=== PATIENT | male | born 1955 | race Caucasian/White ===

== ENCOUNTER → 2020-07-28 | Outpatient (CLI) | payer MEDICARE, OTHER | LOC: EDBD 10:33 → LAB 10:33 | DX: L08.9 Local infection of the skin and subcutaneous tissue, unspecified (principal); L03.314 Cellulitis of groin ==

== ENCOUNTER 2023-12-29 08:57 | Observation (INO) | payer MEDICARE, OTHER ==
[~2023-12-29] VITALS: Ht 185.4 cm; Wt 120.0 kg
[2023-12-29 09:40] LABS: BASO # 0.02 K/mm3 (0.02-0.10); EOS # 0.17 K/mm3 (0.04-0.40); EOS % 2.4 % (0.0-4.0); HEMATOCRIT 50.3 % (42.0-52.0); HEMOGLOBIN 16.6 g/dL (13.5-18.0); LYMPH# 1.49 K/mm3 (1.50-4.00); MEAN CELL VOLUME 90 fl (78-100); MEAN CORPUSCULAR HEMOGLOBIN 30 pg (27-31); MEAN CORPUSCULAR HGB CONC 33 g/dL (33-37); MEAN PLATELET VOLUME 10.6 fl (7.4-10.4); NEU # 4.88 K/mm3 (1.40-6.50); PLATELET COUNT 260 K/mm3 (130-400); RED BLOOD COUNT 5.61 M/mm3 (4.20-5.60); RED CELL DISTRIBUTION WIDTH 12.9 % (11.5-14.5); WHITE BLOOD COUNT 7.2 K/mm3 (4.8-10.8)
[2023-12-29 09:51] LABS: ALBUMIN 3.9 g/dL (3.4-4.8)
[2023-12-29 09:54] LABS: TOTAL PROTEIN 7.4 g/dL (6.2-8.1)
[2023-12-29 10:26] LABS: TOTAL BILIRUBIN 0.8 mg/dL (0.2-1.2)
[2023-12-29] MEDS ORDERED: cloNIDine 0.1 MG TAB PO ONE (10:30)
[2023-12-29] MEDS ORDERED: Albuterol/Ipratropium 3 MG-0.5 MG/3 ML Neb Soln IH ONE (10:30)
[2023-12-29 12:00] VITALS: BP 189/104
[2023-12-29] MEDS ORDERED: Acetaminophen 500 MG TAB PO PRN (13:00)
[2023-12-29] MEDS ORDERED: Ibuprofen 200 MG TAB PO PRN (13:00)
[2023-12-29] MEDS ORDERED: Bisacodyl 5 MG TAB PO PRN (13:00)
[2023-12-29] MEDS ORDERED: Ondansetron 4 MG/2 ML VIAL IV PRN (13:00)
[2023-12-29] MEDS ORDERED: Polyethylene Glycol 3350 Powder 17 GM PACKET PO PRN (13:00)
[2023-12-29] MEDS ORDERED: Famotidine 20 MG TAB PO SCH (13:03)
[2023-12-29] MEDS ORDERED: methylPREDNISolone Sod Succ 40 MG/ML VIAL IV SCH (13:06)
[2023-12-29] MEDS ORDERED: Albuterol 0.083% Nebule (2.5 MG/3 ML) IH PRN (13:15)
[2023-12-29] MEDS ORDERED: Losartan 50 MG,hydroCHLOROthiazide 12.5 MG PO SCH (13:29)
[2023-12-29] MEDS ORDERED: NS 1,000 ML IV SCH (13:30)
[2023-12-29] MEDS ORDERED: diphenhydrAMINE 25 MG CAP PO SCH (13:45)
[2023-12-29] MEDS ORDERED: EPINEPHrine 11.25 MG,Sodium Cl For Inhalation 3 ML IH PRN (13:45)
[2023-12-29] MEDS ORDERED: diphenhydrAMINE 50 MG/ML 1 ML VIAL IV SCH (13:45)
[2023-12-29] MEDS ORDERED: Vancomycin 1 G in NS 250 ML IV STA (15:25)
[2023-12-29] MEDS ORDERED: Piperacillin/Tazobactam Sodium 4.5 GM in NS 100 ML IV ONE (15:30)
[2023-12-29 16:00] VITALS: BP 190/104
[2023-12-29] MEDS ORDERED: Albuterol/Ipratropium 3 MG-0.5 MG/3 ML Neb Soln IH SCH (17:00)
[2023-12-29] MEDS ORDERED: Famotidine 20 MG/2 ML VIAL IV SCH (21:00)
== END 2023-12-29 16:30 | disposition short-term general hospital (02) ==
LOC: ED 08:57 → MED/SURG 11:47
PROVIDERS: Nurse Practitioner Family; ADMIT Internal Medicine
DX: M79.89 Other specified soft tissue disorders (principal); J38.7 Other diseases of larynx; J10.1 Influenza due to other identified influenza virus with other respiratory manifestations; I10 Essential (primary) hypertension; R09.02 Hypoxemia; F17.220 Nicotine dependence, chewing tobacco, uncomplicated; Z79.899 Other long term (current) drug therapy
CPT/HCPCS: J1200; J1650; J1920; J2543; J2920; J3370; J7030; J7050

== ENCOUNTER → 2024-08-19 | Outpatient (CLI) | payer MEDICARE, OTHER ==
[2024-08-19 08:50] LABS: ALBUMIN 3.9 g/dL (3.4-4.8)
[2024-08-19 08:52] LABS: CALCIUM 9.3 mg/dL (8.3-10.5)
[2024-08-19 08:53] LABS: TOTAL PROTEIN 6.2 g/dL (6.2-8.1)
[2024-08-19 08:55] LABS: TOTAL BILIRUBIN 1.5 mg/dL (0.2-1.2)
== END ==
LOC: LAB 08:26
PROVIDERS: Internal Medicine
DX: C61 Malignant neoplasm of prostate (principal)

== ENCOUNTER → 2024-09-02 | Outpatient (CLI) | payer MEDICARE, OTHER ==
[2024-09-02 10:25] LABS: BASO # 0.02 K/mm3 (0.02-0.10); EOS # 0.27 K/mm3 (0.04-0.40); EOS % 3.3 % (0.0-4.0); HEMATOCRIT 43.8 % (42.0-52.0); HEMOGLOBIN 14.1 g/dL (13.5-18.0); LYMPH# 2.19 K/mm3 (1.50-4.00); MEAN CELL VOLUME 92 fl (78-100); MEAN CORPUSCULAR HEMOGLOBIN 30 pg (27-31); MEAN CORPUSCULAR HGB CONC 32 g/dL (33-37); MEAN PLATELET VOLUME 10.7 fl (7.4-10.4); MONO # 0.68 K/mm3 (0.20-0.80); NEU # 5.05 K/mm3 (1.40-6.50); PLATELET COUNT 263 K/mm3 (130-400); RED BLOOD COUNT 4.78 M/mm3 (4.20-5.60); RED CELL DISTRIBUTION WIDTH 13.2 % (11.5-14.5); WHITE BLOOD COUNT 8.2 K/mm3 (4.8-10.8)
[2024-09-02 10:33] LABS: CALCIUM 9.5 mg/dL (8.3-10.5)
[2024-09-02 10:35] LABS: TOTAL PROTEIN 6.3 g/dL (6.2-8.1)
[2024-09-02 10:36] LABS: TOTAL BILIRUBIN 1.1 mg/dL (0.2-1.2)
== END ==
LOC: LAB 09:56
PROVIDERS: Internal Medicine
DX: C61 Malignant neoplasm of prostate (principal)

== ENCOUNTER → 2024-09-12 | Outpatient (CLI) | payer MEDICARE, OTHER ==
[2024-09-12 09:41] LABS: BASO # 0.01 K/mm3 (0.02-0.10); EOS % 4.4 % (0.0-4.0); HEMATOCRIT 41.5 % (42.0-52.0); HEMOGLOBIN 13.7 g/dL (13.5-18.0); LYMPH# 1.99 K/mm3 (1.50-4.00); MEAN CELL VOLUME 91 fl (78-100); MEAN CORPUSCULAR HEMOGLOBIN 30 pg (27-31); MEAN CORPUSCULAR HGB CONC 33 g/dL (33-37); MONO # 0.43 K/mm3 (0.20-0.80); NEU # 4.08 K/mm3 (1.40-6.50); PLATELET COUNT 219 K/mm3 (130-400); RED BLOOD COUNT 4.58 M/mm3 (4.20-5.60); WHITE BLOOD COUNT 6.8 K/mm3 (4.8-10.8)
[2024-09-12 09:57] LABS: CALCIUM 9.3 mg/dL (8.3-10.5)
[2024-09-12 09:58] LABS: TOTAL PROTEIN 6.3 g/dL (6.2-8.1)
== END ==
LOC: LAB 09:18
PROVIDERS: Internal Medicine
DX: C61 Malignant neoplasm of prostate (principal)

== ENCOUNTER → 2024-10-16 | Outpatient (CLI) | payer MEDICARE, OTHER ==
[2024-10-16 09:15] LABS: CALCIUM 9.4 mg/dL (8.3-10.5)
[2024-10-16 09:16] LABS: TOTAL PROTEIN 6.2 g/dL (6.2-8.1)
[2024-10-16 09:18] LABS: TOTAL BILIRUBIN 0.8 mg/dL (0.2-1.2)
== END ==
LOC: LAB 08:50
PROVIDERS: Internal Medicine
DX: C61 Malignant neoplasm of prostate (principal)

== ENCOUNTER → 2024-10-16 | Outpatient (CLI) | payer MEDICARE, OTHER ==
[2024-10-16 09:08] LABS: BASO # 0.02 K/mm3 (0.02-0.10); EOS # 0.21 K/mm3 (0.04-0.40); EOS % 3.5 % (0.0-4.0); HEMATOCRIT 39.4 % (42.0-52.0); HEMOGLOBIN 13.1 g/dL (13.5-18.0); LYMPH# 1.91 K/mm3 (1.50-4.00); MEAN CELL VOLUME 91 fl (78-100); MEAN CORPUSCULAR HEMOGLOBIN 30 pg (27-31); MEAN CORPUSCULAR HGB CONC 33 g/dL (33-37); MEAN PLATELET VOLUME 9.8 fl (7.4-10.4); MONO # 0.53 K/mm3 (0.20-0.80); NEU # 3.36 K/mm3 (1.40-6.50); PLATELET COUNT 219 K/mm3 (130-400); RED BLOOD COUNT 4.35 M/mm3 (4.20-5.60)
== END ==
LOC: LAB 08:55
PROVIDERS: Radiology Radiation Oncology
DX: C61 Malignant neoplasm of prostate (principal)

== ENCOUNTER → 2024-10-23 | Outpatient (CLI) | payer MEDICARE ==
[2024-10-23 08:50] LABS: BASO # 0.02 K/mm3 (0.02-0.10); EOS # 0.21 K/mm3 (0.04-0.40); EOS % 3.5 % (0.0-4.0); HEMOGLOBIN 13.1 g/dL (13.5-18.0); LYMPH# 1.57 K/mm3 (1.50-4.00); MEAN CELL VOLUME 92 fl (78-100); MEAN CORPUSCULAR HEMOGLOBIN 30 pg (27-31); MEAN CORPUSCULAR HGB CONC 33 g/dL (33-37); MONO # 0.51 K/mm3 (0.20-0.80); NEU # 3.65 K/mm3 (1.40-6.50); PLATELET COUNT 223 K/mm3 (130-400); RED BLOOD COUNT 4.34 M/mm3 (4.20-5.60)
[2024-10-23 08:57] LABS: ALBUMIN 4.1 g/dL (3.4-4.8)
[2024-10-23 08:58] LABS: CALCIUM 9.8 mg/dL (8.3-10.5)
[2024-10-23 08:59] LABS: TOTAL PROTEIN 6.2 g/dL (6.2-8.1)
[2024-10-23 09:01] LABS: TOTAL BILIRUBIN 1.2 mg/dL (0.2-1.2)
== END ==
LOC: LAB 08:39
PROVIDERS: Internal Medicine
DX: C61 Malignant neoplasm of prostate (principal)

== ENCOUNTER → 2024-11-06 | Outpatient (CLI) | payer MEDICARE ==
[2024-11-06 09:51] LABS: BASO # 0.01 K/mm3 (0.02-0.10); EOS # 0.28 K/mm3 (0.04-0.40); HEMATOCRIT 39.5 % (42.0-52.0); HEMOGLOBIN 13.1 g/dL (13.5-18.0); LYMPH# 1.07 K/mm3 (1.50-4.00); MEAN CELL VOLUME 92 fl (78-100); MEAN CORPUSCULAR HEMOGLOBIN 31 pg (27-31); MEAN CORPUSCULAR HGB CONC 33 g/dL (33-37); MEAN PLATELET VOLUME 9.8 fl (7.4-10.4); MONO # 0.52 K/mm3 (0.20-0.80); PLATELET COUNT 164 K/mm3 (130-400); RED BLOOD COUNT 4.29 M/mm3 (4.20-5.60); RED CELL DISTRIBUTION WIDTH 13.4 % (11.5-14.5); WHITE BLOOD COUNT 5.6 K/mm3 (4.8-10.8)
== END ==
LOC: LAB 09:39
PROVIDERS: Radiology Radiation Oncology
DX: C61 Malignant neoplasm of prostate (principal)

== ENCOUNTER → 2024-12-18 | Outpatient (CLI) | payer MEDICARE ==
[2024-12-18 13:52] LABS: BASO # 0.02 K/mm3 (0.02-0.10); EOS # 0.04 K/mm3 (0.04-0.40); EOS % 0.4 % (0.0-4.0); HEMOGLOBIN 13.2 g/dL (13.5-18.0); LYMPH# 0.99 K/mm3 (1.50-4.00); MEAN CELL VOLUME 93 fl (78-100); MEAN CORPUSCULAR HEMOGLOBIN 31 pg (27-31); MEAN CORPUSCULAR HGB CONC 33 g/dL (33-37); MEAN PLATELET VOLUME 9.5 fl (7.4-10.4); MONO # 0.43 K/mm3 (0.20-0.80); PLATELET COUNT 223 K/mm3 (130-400); RED BLOOD COUNT 4.29 M/mm3 (4.20-5.60); RED CELL DISTRIBUTION WIDTH 13.5 % (11.5-14.5)
[2024-12-18 13:59] LABS: ALBUMIN 3.8 g/dL (3.4-4.8)
[2024-12-18 14:00] LABS: CALCIUM 9.1 mg/dL (8.3-10.5)
[2024-12-18 14:02] LABS: TOTAL PROTEIN 6.3 g/dL (6.2-8.1)
[2024-12-18 14:03] LABS: TOTAL BILIRUBIN 1.7 mg/dL (0.2-1.2)
== END ==
LOC: LAB 13:40
PROVIDERS: Internal Medicine
DX: C61 Malignant neoplasm of prostate (principal)

== ENCOUNTER → 2025-01-31 | Outpatient (CLI) | payer MEDICARE ==
[2025-01-31 10:30] LABS: BASO # 0.01 K/mm3 (0.02-0.10); EOS # 0.09 K/mm3 (0.04-0.40); EOS % 1.2 % (0.0-4.0); HEMATOCRIT 41.7 % (42.0-52.0); HEMOGLOBIN 13.7 g/dL (13.5-18.0); LYMPH# 0.77 K/mm3 (1.50-4.00); MEAN CELL VOLUME 95 fl (78-100); MEAN CORPUSCULAR HEMOGLOBIN 31 pg (27-31); MEAN CORPUSCULAR HGB CONC 33 g/dL (33-37); MEAN PLATELET VOLUME 9.8 fl (7.4-10.4); MONO # 0.49 K/mm3 (0.20-0.80); NEU # 5.96 K/mm3 (1.40-6.50); PLATELET COUNT 225 K/mm3 (130-400); RED BLOOD COUNT 4.37 M/mm3 (4.20-5.60); WHITE BLOOD COUNT 7.3 K/mm3 (4.8-10.8)
[2025-01-31 10:35] LABS: ALBUMIN 3.9 g/dL (3.4-4.8)
[2025-01-31 10:37] LABS: CALCIUM 9.5 mg/dL (8.3-10.5)
[2025-01-31 10:38] LABS: TOTAL PROTEIN 6.3 g/dL (6.2-8.1)
== END ==
LOC: LAB 10:03
PROVIDERS: Internal Medicine
DX: C61 Malignant neoplasm of prostate (principal)